=== PATIENT | male | born 1990 | race Caucasian/White ===

== ENCOUNTER 2024-12-26 14:24 | Emergency (ER) | payer SELFPAY ==
[~2024-12-26] VITALS: Ht 170.1 cm; Wt 208.7 kg
[2024-12-26 14:58] LABS: BASO # 0.0 10*3/uL (0.0-0.1); BASO % 0.4 % (0.0-1.0); EOS # 0.3 10*3/uL (0.0-0.4); EOS % 3.0 % (1.0-4.0); MEAN CELL VOLUME 95.3 fl (80.0-94.0); MEAN CORPUSCULAR HGB 32.5 pg (27.0-31.0); MEAN PLATELET VOLUME 10.5 fl (9.6-12.3); MONO # 0.7 10*3/uL (0.1-1.0); MONO % 7.0 % (3.0-9.0); NEUT # 5.8 10*3/uL (2.3-7.9); NEUT % 57.8 % (47.0-73.0); NUCLEATED RED BLOOD CELL 0.0 % (0.0-0.0); NUCLEATED RED BLOOD CELL 0.0 10*3/uL (0.0-0.0); PLATELET COUNT AUTOMATED 308 10*3/uL (130-400); RED CELL DISTRI WIDTH 12.3 % (0-14.5)
[2024-12-26 15:09] LABS: ACT PARTIAL THROMBO TIME 27.6 SECONDS (20.0-32.1)
[2024-12-26 15:18] LABS: BUN 10 mg/dl (9-23)
== END 2024-12-26 17:44 | disposition home or self-care (01) ==
LOC: ED 14:24
PROVIDERS: Internal Medicine
DX: R07.89 Other chest pain (principal); Z88.0 Allergy status to penicillin